=== PATIENT | female | born 2000 | race Caucasian/White ===

== ENCOUNTER → 2021-07-19 | Outpatient (CLI) | payer BC | LOC: COL.RAD 06:55 | DX: G93.5 Compression of brain (principal) ==

== ENCOUNTER 2022-02-17 10:01 | Emergency (ER) | payer BC ==
[~2022-02-17] VITALS: Ht 170.2 cm; Wt 75.0 kg
[2022-02-17 10:07] VITALS: TEMP 98.5
[2022-02-17 11:07] VITALS: BP 130/78; PULSE 90
== END 2022-02-17 11:07 | disposition home or self-care (01) ==
LOC: COL.ER 10:01
DX: J40 Bronchitis, not specified as acute or chronic (principal); Z28.310 Unvaccinated for COVID-19